=== PATIENT | male | born 2005 | race Caucasian/White ===

== ENCOUNTER 2023-02-24 19:20 | Emergency (ER) | payer OTHER ==
[~2023-02-24] VITALS: Ht 167.6 cm; Wt 77.1 kg
[~2023-02-24 19:20] MED LIST: AMOX500C25 PO
[2023-02-24 19:32] VITALS: BP 126/71; PULSE 94; RESP 18; O2SAT 96
--- NOTE | 2023-02-24 19:45 | NUR ---
PT AMBULATORY TO ED RM 3. REPORT GIVEN TO LIZ ALICIA.
[2023-02-24] MEDS ORDERED: KETOROLAC 30 MG/ML VIAL IM ONE (20:35)
--- NOTE | 2023-02-24 20:43 | NUR ---
MOM AT THE BEDSIDE
--- NOTE | 2023-02-24 20:56 | NUR ---
X RAY AT THE BEDSIDE
[2023-02-24] MEDS ORDERED: ACET-10509 PO (21:27)
[2023-02-24 21:53] VITALS: BP 126/71; PULSE 94; RESP 18; O2SAT 96
== END 2023-02-24 21:45 | disposition home or self-care (01) ==
LOC: MED 19:20
DX: S63.682A Other sprain of left thumb, initial encounter (principal); S63.8X1A Sprain of other part of right wrist and hand, initial encounter; S00.531A Contusion of lip, initial encounter; M79.631 Pain in right forearm; V49.88XA Car occupant (driver) (passenger) injured in other specified transport accidents, initial encounter; Y93.89 Activity, other specified; Y92.89 Other specified places as the place of occurrence of the external cause; Y99.8 Other external cause status
CPT/HCPCS: 29130; 71045; 73090; 73130; 73140; 96372; 99284; J1885; Q0092